=== PATIENT | male | born 1970 | race Caucasian/White ===

== ENCOUNTER 2016-07-18 08:33 | Day surgery (SDC) | payer OTHER ==
[2016-07-18] VITALS (9 sets, daily range): BP systolic 126–151; BP diastolic 80–92; PULSE 65–95; RESP 11–18; O2SAT 96–100
[~2016-07-18] VITALS: Ht 180.3 cm; Wt 100.2 kg
[~2016-07-18 08:33] MED LIST: CeFAZolin Inj 2 GM in IV Premix 1 EACH IV SCH; Lactated Ringer's 1,000 ML IV SCH
[2016-07-18] MEDS ORDERED: Propofol 10,000 mCg/mL 20 mL Inj ONE (08:34)
[2016-07-18] MEDS ORDERED: Ketamine 10 mg/mL 20 mL Inj ONE (08:34)
[2016-07-18] MEDS ORDERED: fentaNYL-PF 50 mCg/mL 2 mL Inj ONE (08:34)
[2016-07-18] MEDS ORDERED: Ondansetron 2 mg/mL 2 mL Inj ONE (08:34)
[2016-07-18] MEDS ORDERED: Lactated Ringer's 500 ML IV PRN ×2 (08:40)
[2016-07-18] MEDS ORDERED: Lactated Ringer's 1,000 ML IV SCH ×2 (08:40)
[2016-07-18] MEDS ORDERED: Ondansetron 2 mg/mL 2 mL Inj IVPUSH PRN (08:40)
[2016-07-18] MEDS ORDERED: HYDROmorphone 1 mg/mL Inj IVPUSH PRN ×2 (08:40)
[2016-07-18] MEDS ORDERED: EPHEDrine Sulfate 50 mg/mL Inj IVPUSH PRN ×2 (08:40)
[2016-07-18] MEDS ORDERED: Atropine 0.4 mg/mL Inj IVPUSH PRN (08:40)
[2016-07-18] MEDS ORDERED: fentaNYL-PF 50 mCg/mL 2 mL Inj IVPUSH PRN (08:40)
[2016-07-18] MEDS ORDERED: Labetalol 5 mg/mL 4 mL Inj IV PRN (08:40)
[2016-07-18] MEDS ORDERED: Dexamethasone 4 mg/mL Inj IVPUSH PRN (08:40)
[2016-07-18] MEDS ORDERED: Phenylephrine 10,000 mCg/mL Inj IVPUSH PRN ×2 (08:40)
[2016-07-18] MEDS ORDERED: MetoCLOpramide 5 mg/mL 2 mL Inj IVPUSH PRN (08:40)
--- NOTE | 2016-07-18 08:40 | PCM.HPANE ---
Patient Data Date of Service: Jul 18, 2016 Surgeon Admitting Provider: Attending Provider:Eagle Padgett MD Primary Care Physician:Dimitrios Other Provider:Yenin Reynolds Anesthesia Reason for Visit Umbilical Hernia Ht/WT & BMI Height (Feet): 5 Height (Inches): 11 Weight (Kilograms): 100.244 Body Mass Index 30.00 Allergies Coded Allergies: No Known Allergies (Unverified , 07/16/16) Past Anesthesia History Anesthesia History: Denies:: Anesthesia Reactions, Malignant Hyperthermia Diabetes History Hx Diabetes?: No MRSA MRSA: No Medications No Active Prescriptions or Reported Meds History History of ENT Problems?: No Hx of Heart Problems?: No Cardiovascular History: Denies:: Heart Murmur Hypertension Hx of Respiratory Problem?: Yes Respiratory History: Denies:: Use of C-PAP Machine (SNORES) Hx Neurologic Problems?: No Hx of GI Problems?: Yes Other GI Pertinent History: S/P B/L INGUINAL HERNIA RPR UMBILICAL HERNIA=CURRENT PROBLEM C/OF INTERMITTANT ABD PAIN Hx of Problems?: No Male Hx: Denies:: Prostate Problems Scrotal Mass Testicular Surgery Skin History: Denies:: History Skin Disorders? Pressure Ulcers Hx Musculoskeletal Problems?: Yes Musculoskeletal History: Positive for:: Musculoskeletal Trauma (S/P SHOULDER RPR) Denies:: Back Injury (C/OF BACK/NECK PAIN) Hx of Psycho/Social Problems?: No Hx Surgeries?: Yes (SPINAL SURGERY,BILAT INGUINAL HERNIA RPR'S,SHOULDER RPR) Hx Any Other Health Problems?: Yes Other History: Denies:: Cancer Endocrine Disease Hospitalization Thyroid Disease Hx Diabetes: No Hx Alcohol Use: NoHx Substance Use: Yes (HX OF-RECOVERING ADDICT) Smoking Status: Current Every Day Smoker Have You Smoked inLast 12 mo: YesApprox How Many Cigarettes/day: 5-7 C/DAY Stop/Bang Treated for Sleep Apnea?: No Do You Have a CPAP Machine?: No S-Snoring: Do You Snore Loudly: Yes T-Tired: feel tired, fatigued: No O-Obsered: Observed not breath: Yes P-Blood Pressure: treated: No B- Body Mass Index > 35 kg/m2: No A- Age over 50: No N- Neck Large Circumference: Yes G- Gender Male: Yes RAMIREZ Total Score: 4 RAMIREZ Risk Assessment: High Risk, =/>3 Yes Risk Assessment Category Category 1A: Patient has history of documented sleep apnea, and HAS NOT received any narcotic, sedative or anesthesia administration during this stay. Category 1B: Patient has history of documented sleep apnea, and HAS received any narcotic , sedative or anesthesia administration during this stay Category 2: Patient has SUSPECTED Obstructive Sleep Apnea, and HAS received any narcotic , sedative or anesthesia administration during this stay. Category 3: Patient has SUSPECTED Obstructive Sleep Apnea and HAS NOT received narcotic, sedative or anesthesia administration during this stay. Category 4: Outpatient in Procedural Areas with known sleep apnea or who screen positive for High Risk via the STOP/BANG questionnaire. Exam Exam General Appearance: Alert, Oriented X3, Cooperative, No Acute Distress HEENT/AIRWAY: MP 2 Lungs: Clear to Auscultation, Normal Air Movement Heart: Exam Unremarkable, Normal S1, Normal S2 Plan Impression Patient chart reviewed, patient interviewed and anesthestic plan with risks, benefits, and alternatives discussed, and informed consent obtained. ASA Physical Status: ASA1 Plus Emergency Anesthetic Plan: GA Bene/Risks/Altern/Consents: Yes HP Complete Prior to Induction: Yes Yasir Last DO Jul 18, 2016 08:40
[2016-07-18] MEDS ORDERED: Lactated Ringer's 1,000 ML IV ONE (08:55)
[2016-07-18] MEDS ORDERED: Bupivacaine-MPF 0.5% 30 mL Inj INFILTRATE ONE (11:04)
--- NOTE | 2016-07-18 11:13 | PCM.ANEP1 ---
Post Anesthesia Phase 1 PACU Phase 1 Assessment Date of Service: Jul 18, 2016 Vital Signs Vital Signs Date Time Temp Pulse Resp B/P Pulse Ox O2 Delivery O2 Flow Rate FiO2 07/18/16 08:52 36.6 77 14 130/80 97 Room Air Anesthetic Administered: GA Level of Alertness: Drowsy, not talking TALBERT's with Equal Strength: Yes Pain: No Nausea or Vomiting: No Oxygen Delivery: Simple Mask (6l) Lungs: Clear to Auscultation, Normal Air Movement Dermatome Level: Full Sensation Yasir Last DO Jul 18, 2016 11:13
[2016-07-18] MEDS ORDERED: oxyCODONE-Acetamin 5-325 mg Tablet PO ONE (12:25)
--- NOTE | 2016-07-18 12:52 | PCM.ANEP2 ---
Post Anesthesia Evaluation ASA/CMS Post Anesthesia Date of Service: Jul 18, 2016 VS in Patient's Normal Range?: Yes Resp Stable; Airway Patent?: Yes CV Function & Hydration Stable: Yes Mental Status Recovered?: Yes Pain control Satisfactory?: Yes N/V Control Satisfactory?: Yes Yasir Last DO Jul 18, 2016 12:52
[2016-07-18] MEDS ORDERED: oxyCODONE-Acetamin 5-325 mg Tablet PO PRN (13:10)
--- NOTE | 2016-07-18 13:38 | OP ---
[address] [address] OPERATIVE REPORT PATIENT: DALE KIMBALL : 1970 MR#: [id number] ADMIT: 07/18/2016 JOB ID: [id number] DATE OF SURGERY: 07/18/2016 ANESTHESIA: General. PREOPERATIVE DIAGNOSIS(ES): Symptomatic umbilical hernia. POSTOPERATIVE DIAGNOSIS(ES): Symptomatic umbilical hernia. OPERATIVE PROCEDURE: Open repair of umbilical hernia with mesh. SURGEON: Dr. Eagle Padgett. ASSISTANTS: Angela Jackson PA-C (the assistant research scientist was required for the safe and timely completion of the case). COMPLICATIONS: None. ESTIMATED BLOOD LOSS: Minimal. CONDITION: Satisfactory. SPECIMEN: None. FINDINGS: There is an approximately 2 cm defect which was repaired with 6.9 cm Ventralex patch in an underlay fashion. INDICATIONS/SIGNIFICANT HISTORY: The patient is a 46-year-old man who developed a symptomatic umbilical hernia and requested repair. OPERATIVE TECHNIQUE: The patient was taken to the operating room and placed in the supine position. General anesthesia was administered and perioperative antibiotics were given. The abdomen was prepped and draped in a standard surgical fashion. A procedural pause performed. The infraumbilical curvilinear incision was made and dissection carried down through skin and subcutaneous tissue. The umbilical stalk was circumferentially dissected free and then transected. The fascial defect was then cleared and the hernia which contained preperitoneal fat reduced. Posterior surface of the fascial defect was then cleared and a 6.9 cm Ventralex patch was placed in an underlay fashion. This was sutured in place using 2-0 Prolene sutures at the four cardinal points. The fascia was then closed over it using an additional 2-0 Prolene suture as a horizontal mattress incorporating a little mesh. The umbilicus then tacked down to the fascia using a 3-0 PDS. 3-0 PDS deep dermals were placed followed by running 4-0 Monocryl. Dressing was then applied. The entire procedure was well tolerated without complication.
== END 2016-07-18 23:59 | disposition home or self-care (01) ==
LOC: SAS 08:33
PROVIDERS: ATTEND General Practice
DX: K42.9 Umbilical hernia without obstruction or gangrene (principal); F17.210 Nicotine dependence, cigarettes, uncomplicated
CPT/HCPCS: 49585; C1781; J0690; J2250; J2405; J3010; J7120